=== PATIENT | female | born 1995 | race Caucasian/White ===

== ENCOUNTER 2017-03-12 01:06 | Inpatient (IN) | payer BC, OTHER ==
[2017-03-12] VITALS (36 sets, daily range): BP systolic 108–181; BP diastolic 55–94; PULSE 61–122; TEMP 97.6–98.8
[~2017-03-12] VITALS: Ht 165.1 cm; Wt 71.8 kg
[2017-03-12] MEDS ORDERED: LAMICTAL150 MG PO (02:04)
[2017-03-12] MEDS ORDERED: PRENATAL1 TA7 PO (02:05)
[2017-03-12 03:15] LABS: BASO # 0.1 (0.0-0.2); BASO % 0.4 % (0.0-2.0); EOS # 0.1 (0.0-0.7); EOS % 0.9 % (0-4.0); GRAN # 9.5 (1.4-6.5); GRAN % 73.7 % (42.2-75.2); HEMOGLOBIN 14.8 g/dl (12.5-16.0); LYMPH # 1.8 (1.2-3.4); LYMPH % 13.7 % (20.0-51.0); MEAN CELL VOLUME 92 fl (80.0-100.0); MEAN CORPUSCULAR HEMOGLOBIN 32 pg (27.0-31.0); MEAN CORPUSCULAR HGB CONC 35 g/dl (33.0-37.0); MEAN PLATELET VOLUME 10.2 fl (7.4-10.4); MONO # 1.4 (0.1-0.6); MONO % 10.9 % (1.7-9.3); PLATELET COUNT 266 K/mm3 (130-400); RED BLOOD COUNT 4.57 M/mm3 (4.10-5.30); REDCELL DISTRIBUTION WIDTH-CV 12.4 % (11.5-14.5); WHITE BLOOD COUNT 12.9 K/mm3 (4.8-10.8)
[2017-03-13 05:05] VITALS: BP 111/68; PULSE 64; TEMP 98.1
[2017-03-13 08:02] LABS: HEMATOCRIT 38.8 % (37.0-47.0); HEMOGLOBIN 13.3 g/dl (12.5-16.0)
[2017-03-13 10:40] VITALS: BP 110/70; PULSE 80; TEMP 98.3
[2017-03-13 20:00] VITALS: BP 128/83; PULSE 63; TEMP 97.4
[2017-03-14 07:00] VITALS: BP 118/72; PULSE 73; TEMP 98
[2017-03-14] MEDS ORDERED: MOTRIN 600600 MG/TAB PO (10:29)
[2017-03-14] MEDS ORDERED: PERCOCET 325 MG1 TA2 PO (10:32)
== END 2017-03-14 11:30 | disposition home or self-care (01) | DRG 775 ==
LOC: LDRO 01:06 → LDR 01:55 → OB 15:32 → LDRO 04-06 14:46
PROVIDERS: Obstetrics & Gynecology
PROC: 10E0XZZ Delivery of Products of Conception, External Approach (ICD-10-PCS; principal; 2017-03-12)
PROC: 3E0P7GC Introduction of Other Therapeutic Substance into Female Reproductive, Via Natural or Artificial Opening (ICD-10-PCS; 2017-03-12)
DX: O42.013 Preterm premature rupture of membranes, onset of labor within 24 hours of rupture, third trimester (principal); O36.0130 Maternal care for anti-D [Rh] antibodies, third trimester, not applicable or unspecified; O99.353 Diseases of the nervous system complicating pregnancy, third trimester; G40.909 Epilepsy, unspecified, not intractable, without status epilepticus; Z3A.36 36 weeks gestation of pregnancy; Z37.0 Single live birth
CPT/HCPCS: J0595; J2590; J7120